=== PATIENT | male | born 1965 | race Caucasian/White ===

== ENCOUNTER 2017-01-23 14:41 | Observation (INO) | payer SELFPAY ==
[2017-01-23] MEDS ORDERED: Meclizine 25 MG Tab PO ONE (15:09)
[2017-01-23] MEDS ORDERED: Sodium Chloride 0.9% 1,000 ML IV STA (15:09)
--- NOTE | 2017-01-23 15:20 | EDM.PDOC ---
ED HPI GENERAL MEDICAL PROBLEM - General Chief Complaint: General Stated Complaint: DIZZINESS Time Seen by Provider: 01/23/17 14:57 - History of Present Illness INITIAL COMMENTS - FREE TEXT/NARRATIVE: HISTORY AND PHYSICAL: History of present illness: Patient 51-year-old white male history of hypertension or sensory concern of dizziness he states his splint since approximately January patient states this does seem to be worse with positional changes he denies chest pain shortness breath nausea vomiting he states this was profound today with almost inability to drive and an unsteady gait. He denies any numbness or weakness any nausea vomiting Review of systems: As per history of present illness and below otherwise all systems reviewed and negative. Past medical history: As per history of present illness and as reviewed below otherwise noncontributory. Surgical history: As per history of present illness and as reviewed below otherwise noncontributory. Social history: No reported history of drug or alcohol abuse. Family history: As per history of present illness and as reviewed below otherwise noncontributory. Physical exam: HEENT: Atraumatic, normocephalic, pupils reactive, negative for conjunctival pallor or scleral icterus, mucous membranes moist, throat clear, neck supple, nontender, trachea midline. Lungs: Clear to auscultation, breath sounds equal bilaterally, chest nontender. Heart: S1S2, regular, negative for clicks, rubs, or JVD. Abdomen: Soft, nondistended, nontender. Negative for masses or hepatosplenomegaly. Negative for costovertebral tenderness. Pelvis: Stable nontender. Genitourinary: Deferred. Rectal: Deferred. Extremities: Atraumatic, negative for cords or calf pain. Neurovascular unremarkable. Neuro: Awake, alert, oriented. Cranial nerves II through XII unremarkable. Cerebellum unremarkable per finger to nose. Motor and sensory unremarkable throughout. Exam nonfocal. Patient with a slightly unsteady gait on exam Diagnostics: CBC CMP PT/INR troponin chest x-ray EKG CT brain Therapeutics: IV O2 monitor meclizine 25 mg by mouth Impression: #1 dizziness #2 ataxia #3 hypertension Definitive disposition and diagnosis as appropriate pending reevaluation and review of above. - Related Data Allergies Allergy/AdvReac Type Severity Reaction Status Date / Time No Known Allergies Allergy Verified 01/23/17 15:10 Home Meds: Home Meds . [No Known Home Meds] 01/23/17 [History] ED ROS GENERAL - Review of Systems Review Of Systems: ROS reveals no pertinent complaints other than HPI. ED EXAM, GENERAL - Physical Exam Exam: See Below (See dictation) Course - Vital Signs Last Recorded V/S: Last Vital Signs Temp 36.6 C 01/23/17 15:05 Pulse 77 01/23/17 16:54 Resp 14 01/23/17 16:54 BP 164/92 H 01/23/17 16:54 Pulse Ox 95 01/23/17 16:54 - Orders/Labs/Meds Orders: Active Orders 24 hr Category Date Time Status EKG 12 Lead [EKG Documentation Completion] [RC] STAT Care 01/23/17 15:03 Active Chest 1V Frontal [CR] Stat Exams 01/23/17 15:07 Taken Head wo Cont [CT] Stat Exams 01/23/17 15:08 Taken Labs: Laboratory Tests 01/23/17 01/23/17 01/23/17 Range/Units 15:14 15:14 15:14 WBC 8.05 (4.0-11.0) K/uL RBC 4.88 (4.50-5.90) M/uL Hgb 15.2 (13.0-17.0) g/dL Hct 44.1 (38.0-50.0) % MCV 90.4 (80.0-98.0) fL MCH 31.1 (27.0-32.0) pg MCHC 34.5 (31.0-37.0) g/dL RDW Std Deviation 46.0 (28.0-62.0) fl RDW Coeff of Brianne 14 (11.0-15.0) % Plt Count 296 (150-400) K/uL MPV 9.30 (7.40-12.00) fL Neut % (Auto) 54.7 (48.0-80.0) % Lymph % (Auto) 35.3 (16.0-40.0) % Meriwether % (Auto) 7.5 (0.0-15.0) % Eos % (Auto) 2.1 (0.0-7.0) % Baso % (Auto) 0.4 (0.0-1.5) % Neut # (Auto) 4.4 (1.4-5.7) K/uL Lymph # (Auto) 2.8 H (0.6-2.4) K/uL Meriwether # (Auto) 0.6 (0.0-0.8) K/uL Eos # (Auto) 0.2 (0.0-0.7) K/uL Baso # (Auto) 0.0 (0.0-0.1) K/uL Nucleated RBC % 0.0 /100WBC Nucleated RBCs # 0 K/uL INR 0.99 (0.86-1.11) Sodium 140 (136-146) mmol/L Potassium 3.9 (3.5-5.1) mmol/L Chloride 107 (98-110) mmol/L Carbon Dioxide 26 (21-31) mmol/L BUN 20 (6.0-23.0) mg/dL Creatinine 1.3 (0.6-1.5) mg/dL Est Cr Clr Drug Dosing 69.41 mL/min Estimated GFR (MDRD) 58.2 ml/min Glucose 91 (60-110) mg/dL Calcium 9.1 (8.8-10.8) mg/dL Total Bilirubin 0.3 (0.1-1.5) mg/dL AST 17 (5-40) IU/L ALT 34 (8-54) IU/L Alkaline Phosphatase 77 (40-150) Troponin I (0.0-0.29) NG/ML Total Protein 7.3 (6.0-8.0) g/dL Albumin 3.8 (3.5-5.0) g/dL Globulin 3.5 (2.0-3.5) g/dL Albumin/Globulin Ratio 1.1 L (1.3-2.8) Urine Color Urine Appearance Urine pH (5.0-8.0) Ur Specific Girdler (1.001-1.035) Urine Protein (NEGATIVE) mg/dL Urine Glucose (UA) (NEGATIVE) mg/dL Urine Ketones (NEGATIVE) mg/dL Urine Occult Blood (NEGATIVE) Urine Nitrite (NEGATIVE) Urine Bilirubin (NEGATIVE) Urine Urobilinogen (<2.0) EU/dL Ur Leukocyte Esterase (NEGATIVE) Urine RBC (0-2/HPF) Urine WBC (0-5/HPF) Ur Epithelial Cells (NONE-FEW) Urine Bacteria (NEGATIVE) Urine Mucus (NONE-MOD) 01/23/17 01/23/17 Range/Units 15:14 16:25 WBC (4.0-11.0) K/uL RBC (4.50-5.90) M/uL Hgb (13.0-17.0) g/dL Hct (38.0-50.0) % MCV (80.0-98.0) fL MCH (27.0-32.0) pg MCHC (31.0-37.0) g/dL RDW Std Deviation (28.0-62.0) fl RDW Coeff of Brianne (11.0-15.0) % Plt Count (150-400) K/uL MPV (7.40-12.00) fL Neut % (Auto) (48.0-80.0) % Lymph % (Auto) (16.0-40.0) % Meriwether % (Auto) (0.0-15.0) % Eos % (Auto) (0.0-7.0) % Baso % (Auto) (0.0-1.5) % Neut # (Auto) (1.4-5.7) K/uL Lymph # (Auto) (0.6-2.4) K/uL Meriwether # (Auto) (0.0-0.8) K/uL Eos # (Auto) (0.0-0.7) K/uL Baso # (Auto) (0.0-0.1) K/uL Nucleated RBC % /100WBC Nucleated RBCs # K/uL INR (0.86-1.11) Sodium (136-146) mmol/L Potassium (3.5-5.1) mmol/L Chloride (98-110) mmol/L Carbon Dioxide (21-31) mmol/L BUN (6.0-23.0) mg/dL Creatinine (0.6-1.5) mg/dL Est Cr Clr Drug Dosing mL/min Estimated GFR (MDRD) ml/min Glucose (60-110) mg/dL Calcium (8.8-10.8) mg/dL Total Bilirubin (0.1-1.5) mg/dL AST (5-40) IU/L ALT (8-54) IU/L Alkaline Phosphatase (40-150) Troponin I < 0.10 (0.0-0.29) NG/ML Total Protein (6.0-8.0) g/dL Albumin (3.5-5.0) g/dL Globulin (2.0-3.5) g/dL Albumin/Globulin Ratio (1.3-2.8) Urine Color YELLOW Urine Appearance CLEAR Urine pH 6.0 (5.0-8.0) Ur Specific Girdler 1.025 (1.001-1.035) Urine Protein NEGATIVE (NEGATIVE) mg/dL Urine Glucose (UA) NEGATIVE (NEGATIVE) mg/dL Urine Ketones NEGATIVE (NEGATIVE) mg/dL Urine Occult Blood NEGATIVE (NEGATIVE) Urine Nitrite NEGATIVE (NEGATIVE) Urine Bilirubin NEGATIVE (NEGATIVE) Urine Urobilinogen 0.2 (<2.0) EU/dL Ur Leukocyte Esterase NEGATIVE (NEGATIVE) Urine RBC 0-1 (0-2/HPF) Urine WBC 0-1 (0-5/HPF) Ur Epithelial Cells RARE (NONE-FEW) Urine Bacteria RARE (NEGATIVE) Urine Mucus LIGHT (NONE-MOD) Meds: Medications Discontinued Medications Generic Name Dose Route Start Last Admin Trade Name Ania PRN Reason Stop Dose Admin Sodium Chloride 1,000 mls @ 999 mls/hr 01/23/17 15:09 01/23/17 16:28 Normal Saline IV 01/23/17 16:09 999 mls/hr NOW STA Administration Meclizine HCl 25 mg 01/23/17 15:09 01/23/17 15:16 Antivert PO 01/23/17 15:10 25 mg ONETIME ONE Administration Departure - Departure Time of Disposition: 16:58 Disposition: Refer to Observation Condition: Good Clinical Impression: Dizziness, Ataxia, Hypertension, Left bundle branch block - Discharge Information Forms: ED Department Discharge - My Orders Last 24 Hours: My Active Orders 01/23/17 15:03 EKG 12 Lead [EKG Documentation Completion] [RC] STAT 01/23/17 15:07 Chest 1V Frontal [CR] Stat 01/23/17 15:08 Head wo Cont [CT] Stat - Assessment/Plan Last 24 Hours: My Active Orders 01/23/17 15:03 EKG 12 Lead [EKG Documentation Completion] [RC] STAT 01/23/17 15:07 Chest 1V Frontal [CR] Stat 01/23/17 15:08 Head wo Cont [CT] Stat
--- NOTE | 2017-01-23 20:54 | PCM.HP ---
H&P History of Present Illness - General Date of Service: 01/23/17 Admit Problem/Dx: Admission Diagnosis/Problem Admission Diagnosis/Problem Dizziness Source of Information: Patient, Old Records, Provider, RN - History of Present Illness Initial Comments - Free Text/Narative: He presented to the ED today. He noted onset of balance trouble about 7-10 days ago. He awoke one day and noted that he had trouble walking. It seems a little better. He has been told that he has HTN but has not taken prescribed medicines. He has no headache. He has no chest pain or palpitations. sometimes he sees double. - Related Data Allergies/Adverse Reactions: Allergies Allergy/AdvReac Type Severity Reaction Status Date / Time No Known Allergies Allergy Verified 01/23/17 15:10 Home Medications: Home Meds . [No Known Home Meds] 01/23/17 [History] Past Medical History - Past Health History Medical/Surgical History: Denies Medical/Surgical History HEENT History: Reports: Other (See Below) (right sided hearing loss since tonsillectomy at age 5 years; history of nasal fracture from a boxing injury) Cardiovascular History: Reports: Hypertension. Denies: Bypass, CAD, Cardiomyopathy, Heart Failure, [place], Pacemaker, Prior Cardiac Arrest, PVD, Syncope Respiratory History: Denies: COPD Gastrointestinal History: Denies: Cirrhosis Genitourinary History: Denies: Chronic Renal Insuffiency Musculoskeletal History: Reports: Other (See Below) Other Musculoskeletal History: ankle and neck sx Neurological History: Reports: Alzheimers Disease. Denies: Brain Injury, Headaches, Chronic, MS Endocrine/Metabolic History: Denies: Chauncey's Disease, Diabetes, Type I, Diabetes, Type II Hematologic History: Reports: None Oncologic (Cancer) History: Reports: None - Past Surgical History HEENT Surgical History: Reports: Tonsillectomy Social & Family History - Family History Family Medical History: Noncontributory - Tobacco Use Smoking Status *Q: Never Smoker Second Hand Smoke Exposure: No - Caffeine Use Caffeine Use: Reports: Coffee - Alcohol Use Alcohol Use Comment: he drinks about six beers per month - Recreational Drug Use Recreational Drug Use: No H&P Review of Systems - Review of Systems: Review Of Systems: See Below General: Denies: Fever, Chills, Decreased Appetite HEENT: Denies: Ear Pain, Sore Throat Pulmonary: Denies: Shortness of Breath, Wheezing, Cough, Sputum, Hemoptysis Cardiovascular: Denies: Chest Pain, Edema Gastrointestinal: Denies: Abdominal Pain, Anorexia, Black Stool, Bloody Stool, Difficulty Swallowing, Hematemesis, Hematochezia, Nausea, Stool Incontinence, Vomiting Genitourinary: Denies: Dysuria, Frequency, Hematuria, Retention Skin: Denies: Cyanosis, Jaundice Psychiatric: Denies: Confusion, Depression, Agitation, Hallucinations Neurological: Denies: Confusion, Seizure Exam - Exam Exam: See Below - Vital Signs Vital Signs: Last Vital Signs Temp 96.9 F 01/23/17 17:43 Pulse 71 01/23/17 17:43 Resp 18 01/23/17 17:43 BP 172/107 H 01/23/17 17:43 Pulse Ox 96 01/23/17 17:43 Weight: 102.7 kg - Exam General: Alert, Oriented, Cooperative HEENT: EOMI, Other (no nystagmas) Neck: Supple, Trachea Midline Lungs: Clear to Auscultation, Normal Respiratory Effort Cardiovascular: Regular Rate, Regular Rhythm. No: Tachycardia, Systolic Murmur , Diastolic Murmur Abdomen: Soft. No: Peritoneal Signs, Distention, Tenderness Rectal (Males) Exam: Deferred Extremities: No: Edema Neuro Extensive - Motor, Sensory, Reflexes: Normal Gait, Other ( he has trouble with heel to toe walk. He has normal finger to nose test; normal rapid alternating movement. He has slight facial asymmetry but he states that he thinks that it is normal; particularly in light of prior boxing related nasal fracture.). No: Dysarthria, Facial palsy (L), Facial Palsy (R), Hemeplagia (R) , Hemeplagia (L), Pronator Drift (R), Pronator Drift (L), Abnormal Finger to Nose Psychiatric: Alert, Normal Affect, Normal Mood - Patient Data Result Diagrams: 01/23/17 15:14 01/23/17 15:14 Lev Results Last 24 hrs: CXR Unremarkable CT head unremarkable EKG: sinus rhythm; LBBB *Q Meaningful Use (ADM) - VTE *Q VTE Criteria *Q: - Stroke *Q Stroke Criteria *Q: - AMI *Q AMI Criteria *Q: - Problem List (1) Ataxia SNOMED Code(s): 56804801 ICD Code: R27.0 - ATAXIA, UNSPECIFIED Status: Acute Current Visit: Yes (2) Hypertension SNOMED Code(s): 27595251 ICD Code: I10 - ESSENTIAL (PRIMARY) HYPERTENSION Status: Acute Current Visit: Yes (3) Left bundle branch block SNOMED Code(s): 01686691 ICD Code: I44.7 - LEFT BUNDLE-BRANCH BLOCK, UNSPECIFIED Status: Acute Current Visit: Yes Problem List Initiated/Reviewed/Updated: Yes Orders Last 24hrs: Active Orders 24 hr Category Date Time Status Telemetry Monitoring [Cardiac Monitoring] [RC] . 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 He has high risk for vasculopathy. We discussed need for echocardiogram and carotid ultrasound and close outpatient follow up. He would like to pursue further work up as an outpatient. Will start antihypertensives, check lipids and anticipate discharge tomorrow.guerline leija MD
[2017-01-23] MEDS ORDERED: Bisacodyl 5 MG Tab PO PRN (20:59)
[2017-01-23] MEDS ORDERED: Sodium Chloride 0.9% 2.5 ML Syringe FLUSH PRN (20:59)
[2017-01-23] MEDS ORDERED: Sodium Chloride 0.9% 10 ML Syringe FLUSH PRN (20:59)
[2017-01-23] MEDS ORDERED: Temazepam 15 MG Cap PO PRN (20:59)
[2017-01-23] MEDS ORDERED: Acetaminophen 325 MG Tab PO PRN (20:59)
[2017-01-23] MEDS ORDERED: Aspirin 81 MG Tab.EC PO ONE (21:10)
[2017-01-23] MEDS: Lisinopril 10 MG Tab PO SCH (21:21)
[2017-01-23] MEDS: Hydrochlorothiazide 25 MG Tab PO SCH (21:22)
[2017-01-24] MEDS: Hydrochlorothiazide 25 MG Tab PO SCH (08:48)
[2017-01-24] MEDS: Lisinopril 10 MG Tab PO SCH (08:49)
[2017-01-24 08:50] VITALS: BP 147/84
[2017-01-24] MEDS ORDERED: Aspirin 81 MG Tab.Chew PO SCH (09:00)
--- NOTE | 2017-01-24 10:19 | PCM.DCSUM1 ---
Discharge Summary - Hospital Course Free Text/Narrative:: 51 yo male admitted for r/o CVA. He was having symptoms of off balance, dizziness, tinnitus x 10 days. He did not have syncope, chest pain, sob, palpitaitons, slurred speech, facial droop or other pertinent symptoms. He has history of HTN not on medications. His Head CT negative. CMP and CBC unremarkable. His lipid panel CH 200, lDL 136 where lipitor started. He would like to get stroke work up as outpatient. He is discharged in stable condition. He is to start asa, lipitor, lisinopril, HCTZ and f/u with PCP brain mri, carotid us, echo. He is to follow up with Dr. Lebron in clinic next week. - Discharge Data Discharge Date: 01/24/17 Discharge Disposition: Home, Self-Care 01 Condition: Good - Patient Instructions Diet: Heart Healthy Diet Activity: As Tolerated Driving: May Drive Today Showering/Bathing: May Shower Notify Provider of: Swelling and Redness - Discharge Plan Prescriptions/Med Rec: Aspirin 81 mg PO DAILY #30 tab.chew Hydrochlorothiazide 25 mg PO BIDDIURETIC #60 tablet Lisinopril 20 mg PO BID #60 tablet atorvaSTATin [Lipitor] 20 mg PO BEDTIME #30 tablet Home Medications: Home Meds Aspirin 81 mg PO DAILY #30 tab.chew 01/24/17 [Rx] Hydrochlorothiazide 25 mg PO BIDDIURETIC #60 tablet 01/24/17 [Rx] Lisinopril 20 mg PO BID #60 tablet 01/24/17 [Rx] atorvaSTATin [Lipitor] 20 mg PO BEDTIME #30 tablet 01/24/17 [Rx] Patient Handouts: Aspirin, ASA chewable tablets, Ataxia, Hypertension, Easy-to- Read, Lisinopril tablets, Dizziness, [id number], Hydrochlorothiazide, HCTZ capsules or tablets Referrals: [facility] [Outside] PCP,None [Primary Care Provider] - - General Info Date of Service: 01/24/17 Functional Status: Reports: tolerating diet - Review of Systems General: Reports: No Symptoms HEENT: Reports: no symptoms Pulmonary: Reports: no symptoms Cardiovascular: Reports: No Symptoms Gastrointestinal: Reports: No symptoms Genitourinary: Reports: no symptoms Musculoskeletal: Reports: no symptoms Skin: Reports: no symptoms Neurological: Reports: No Symptoms Psychiatric: Reports: no symptoms - Patient Data Vitals - Most Recent: Last Vital Signs Temp 98.6 F 01/24/17 08:00 Pulse 70 01/24/17 08:00 Resp 17 01/24/17 08:00 BP 147/84 H 01/24/17 08:49 Pulse Ox 95 01/24/17 08:00 Weight - Most Recent: 102.7 kg I&O - Last 24 hours: Intake & Output 01/23/17 01/24/17 01/24/17 22:59 06:59 14:59 Intake Total 950 Output Total 1860 Balance -910 Lab Results - Last 24 hrs: Laboratory Results - last 24 hr 01/24/17 Range/Units 05:48 Magnesium 1.9 (1.5-2.3) mEq/L Triglycerides 161 (10-190) mg/dL Cholesterol 200 (131-240) mg/dL LDL Cholesterol, Calc 136 (60-180) mg/dL VLDL Cholesterol 32 (5-55) mg/dL HDL Cholesterol 32 L (40-80) mg/dL Cholesterol/HDL Ratio 6.3 H (3.3-6.0) Med Orders - Current: Current Medications Acetaminophen (Tylenol) 650 mg PO Q4H PRN PRN Reason: Pain (Mild 1-3)/fever Aspirin (Aspirin) 81 mg PO DAILY [facility] Last Admin: 01/24/17 08:48 Dose: 81 mg Bisacodyl (Dulcolax) 5 mg PO DAILY PRN PRN Reason: Constipation Hydrochlorothiazide (Hydrochlorothiazide) 25 mg PO BIDDIURETIC [facility] Last Admin: 01/24/17 08:48 Dose: 25 mg Lisinopril (Prinivil) 20 mg PO BID [facility] Last Admin: 01/24/17 08:49 Dose: 20 mg Sodium Chloride (Saline Flush) 10 ml FLUSH ASDIRECTED PRN PRN Reason: Keep Vein Open Sodium Chloride (Saline Flush) 2.5 ml FLUSH ASDIRECTED PRN PRN Reason: Keep Vein Open Temazepam (Restoril) 15 mg PO BEDTIME PRN PRN Reason: Sleep Discontinued Medications Aspirin (Halfprin) 81 mg PO ONETIME ONE Stop: 01/23/17 21:11 Last Admin: 01/23/17 21:22 Dose: 81 mg Sodium Chloride (Normal Saline) 1,000 mls @ 999 mls/hr IV NOW STA Stop: 01/23/17 16:09 Last Admin: 01/23/17 16:28 Dose: 999 mls/hr Meclizine HCl (Antivert) 25 mg PO ONETIME ONE Stop: 01/23/17 15:10 Last Admin: 01/23/17 15:16 Dose: 25 mg - Exam General: Reports: alert, oriented HEENT: Reports: Pupils equal, EOMI Neck: Reports: supple Lungs: Reports: Clear to auscultation, Normal respiratory effort Cardiovascular: Reports: Regular Rate, Regular Rhythm *Q Meaningful Use (DIS) - VTE *Q VTE Criteria *Q: - Stroke *Q Stroke Criteria *Q: - AMI *Q AMI Criteria *Q:
--- NOTE | 2017-01-26 09:34 | CR ---
EXAM DATE: 01/23/17 PATIENT'S AGE: 51 Patient: BEBE GARCIA Facility: [place], [place] Site . Site : 1965 Study: XRay Chest [id number]/14/2017 3:33:19 PM Ordering Physician: Emery Ricks Final Report: INDICATION: dizziness TECHNIQUE: Chest radiograph 1 view COMPARISON: None FINDINGS: Cardiovascular and mediastinum: The cardiac silhouette is normal in appearance and size. Mediastinum is within normal limits. Lungs and pleural space: Both lungs are unremarkable in appearance. No sign of pleural effusion. No pneumothorax is seen. Bones and soft tissues: No significant findings. IMPRESSION: 1. No acute cardiopulmonary disease seen. Dictated by: Damaso Garrison MD @ 01/23/2017 15:35:01 (Electronic Signature) Report Signed by Proxy. [facility] H[facility]PITALLuisana
--- NOTE | 2017-01-26 09:35 | CT ---
EXAM DATE: 01/23/17 PATIENT'S AGE: 51 Patient: BEBE GARCIA Facility: [place], [place] Site . Site : 1965 Study: CT Head [id number]/14/2017 3:38:08 PM Ordering Physician: Emery Ricks Final Report: INDICATION: dizziness TECHNIQUE: CT Head without i.v. contrast. COMPARISON: None FINDINGS: CSF spaces: Within normal limits for age. Brain parenchyma: There are low attenuation white matter changes in the frontal lobes, likely due to chronic microvascular disease. The brain parenchyma is normal in appearance with preservation of the esquivel-white matter junction. No sign of mass, hemorrhage, or midline shift. Skull base and calvarium: The visualized paranasal sinuses are well aerated. The mastoid air cells are clear. The visualized orbits are grossly unremarkable. No skull fractures are seen. IMPRESSION: 1. No CT evidence acute infarcts, hemorrhage, or mass effect seen. Dictated by: Damaso Garrison MD @ 01/23/2017 15:42:51 (Electronic Signature) Report Signed by Proxy. [facility] SHORELuisana
== END 2017-01-24 11:30 | disposition home or self-care (01) ==
LOC: MW.ED 14:41 → MW.MS 16:59
PROVIDERS: ADMIT Family Medicine; ATTEND Family Medicine
DX: R27.0 Ataxia, unspecified (principal); I10 Essential (primary) hypertension; I44.7 Left bundle-branch block, unspecified; G30.9 Alzheimer's disease, unspecified; F02.80 Dementia in other diseases classified elsewhere, unspecified severity, without behavioral disturbance, psychotic disturbance, mood disturbance, and anxiety; Z90.89 Acquired absence of other organs
CPT/HCPCS: 36415; 70450; 71010; 80053; 80061; 81001; 83735; 84484; 85025; 85610; 93005; 96360; 99285; A9270; J7040; G0378